=== PATIENT | male | born 1990 | race Caucasian/White ===

== ENCOUNTER 2019-07-15 13:27 | Emergency (ER) | payer OTHER, SELFPAY ==
[2019-07-15] MEDS ORDERED: NA CHLORIDE 0.9% 1,000 ML ONE ×2 (14:08→15:29)
--- NOTE | 2019-07-15 14:19 | EKG ---
Test Date: 2019-07-15 Test Time: 13:44:12 Pensionholder Information Clerk: CAROLIN MEASUREMENT RESULTS: Intervals: Rate: 124 WY: 152 QRSD: 86 QT: 280 QTc: 402 [place]: P: 47 WY: 152 QRS: 64 T: 46 INTERPRETIVE STATEMENTS: Sinus tachycardia Nonspecific T wave abnormality Abnormal ECG Compared to ECG 07/25/2012 17:40:27 T-wave abnormality now present Sinus rhythm no longer present Electronically Signed On 07-15-19 14:19:09 [employer] by Sujit Wright
[2019-07-15 14:43] LABS: Absolute Lymphocytes (CBC) 1.8 K/uL (0.7-4.9); Basophils % 0.2 % (0-1.3); Hematocrit 32.3 % (39.6-49.0); Lymphocytes % 32.4 % (15.3-44.8); MPV 8.4 fL (7.6-11.3); RBC Red Blood Cell Count 3.96 M/uL (4.33-5.43)
[2019-07-15 14:57] LABS: Protime INR 1.14
[2019-07-15 15:23] LABS: ALT/SGPT 107 U/L (12-78); AST/SGOT 74 U/L (15-37); Albumin 3.5 g/dL (3.4-5.0); Alkaline Phosphatase 153 U/L (45-117); BUN Blood Urea Nitrogen 13 mg/dL (7-18); Bicarbonate 30 mmol/L (21-32); Bilirubin Direct 0.2 mg/dL (0-0.2); Bilirubin Total 0.5 mg/dL (0.2-1.0); Glucose Level 101 mg/dL (74-106); Potassium 3.8 mmol/L (3.5-5.1); Protein, Total 7.2 g/dL (6.4-8.2); Sodium Level 141 mmol/L (136-145); Troponin (Emerg Dept Use Only) < 0.02 ng/mL (0.0-0.045)
[2019-07-15 15:27] LABS: Thyroid Stimulating Hormone < 0.005 uIU/mL (0.360-3.740)
[2019-07-15 16:09] LABS: Barbiturates NEGATIVE (NEGATIVE); Benzodiazepines NEGATIVE (NEGATIVE); Cocaine NEGATIVE (NEGATIVE); METHAMPHETAM NEGATIVE (NEGATIVE); Methadone NEGATIVE (NEGATIVE); Opiates NEGATIVE (NEGATIVE); Phencyclidine NEGATIVE (NEGATIVE); THC Cannibis POSITIVE (NEGATIVE)
--- NOTE | 2019-07-15 16:24 | ER ---
Nurse's Notes [facility] Name: Johnny Sales Age: 28 yrs Sex: Male : 1990 Arrival Date: 07/15/2019 Time: 13:29 Bed 13 Private MD: Diagnosis: Hyperthyroidism;Palpitations Presentation: 07/15 13:42 Presenting complaint: Patient states: has been weak, shaky, lost 60 pounds in last 3 iw months, the consistency of BM has been "off" , doesn't feel like he's getting enough nutrients, was seen at [facility] clinic yesterday was told his heart rate was elevated and they scheduled a colonoscopy and needs labs, was told to come to ER for labs. Transition of care: patient was not received from another setting of care. Onset of symptoms was March 2019. Risk Assessment: Do you want to hurt yourself or someone else? Patient reports no desire to harm self or others. Initial Sepsis Screen: Does the patient meet any 2 criteria? No. Patient's initial sepsis screen is negative. Does the patient have a suspected source of infection? No. Patient's initial sepsis screen is negative. Care prior to arrival: None. 13:42 Method Of Arrival: Ambulatory iw 13:42 Acuity: LIDYA 3 iw Triage Assessment: 13:45 General: Appears in no apparent distress. comfortable, Behavior is cooperative, bp appropriate for age, anxious. Pain: Denies pain. EENT: No deficits noted. Neuro: No deficits noted. Cardiovascular: Rhythm is sinus tachycardia. Respiratory: No deficits noted. GI: No deficits noted. : No signs and/or symptoms were reported regarding the genitourinary system. Derm: No deficits noted. Musculoskeletal: No deficits noted. Historical: - Allergies: 13:45 Sulfa (Sulfonamide Antibiotics); iw - Home Meds: 13:45 None [Active]; iw - PMHx: 13:45 Hypertension; iw - PSHx: 13:45 Hernia repair; iw - Immunization history:: Adult Immunizations not up to date. - Social history:: Smoking status: Patient/guardian denies using tobacco. - Ebola Screening: : Patient negative for fever greater than or equal to 101.5 degrees Fahrenheit, and additional compatible Ebola Virus Disease symptoms Patient denies exposure to infectious person Patient denies travel to an Ebola-affected area in the 21 days before illness onset No symptoms or risks identified at this time. Screenin:46 Abuse screen: Denies threats or abuse. Denies injuries from another. Nutritional bp screening: No deficits noted. Tuberculosis screening: No symptoms or risk factors identified. Fall Risk None identified. Assessment: 13:46 General: SEE TRIAGE NOTE. bp 15:00 Reassessment: ST ON MONITOR, IVF INFUSING. bp 16:30 Reassessment: D/C ON HOLD FOR LAB RESULTS. bp 16:44 Reassessment: PT D/C HOME AMBULATORY, DX WITH HYPERTHYROIDISM. bp Vital Signs: 13:45 BP 158 / 106; Pulse 127; Resp 16 S; Temp 99.7; Pulse Ox 97% on R/A; Weight 90.26 kg; iw Height 6 ft. 4 in. (193.04 cm); Pain 0/10; 14:52 BP 143 / 84; Pulse 109; Resp 27; Pulse Ox 99% ; bp 15:37 BP 150 / 77; Pulse 104; Resp 28; Pulse Ox 100% ; bp 16:30 BP 150 / 77; Pulse 104; Resp 26; Pulse Ox 100% ; bp 13:45 Body Mass Index 24.22 (90.26 kg, 193.04 cm) iw ED Course: 13:29 Patient arrived in ED. rg4 13:37 Ramez Cook, RN is Primary Nurse. bp 13:44 Triage completed. iw 13:44 EKG done, by ED staff, reviewed by Ross Zamora MD. dh3 13:46 Arm band placed on. iw 13:46 Patient has correct armband on for positive identification. Bed in low position. Call bp light in reach. Side rails up X2. 13:49 Karl Lin, DARIAN is PHCP. pm1 13:49 Ross Zamora MD is Attending Physician. pm1 14:02 Radiology exam delayed due to lab results not completed at this time. (BUN/Creatinine). bq 14:12 Missed attempt(s): 20 gauge in right forearm. Bleeding controlled, band aid applied, lt1 catheter tip intact. 14:15 Missed attempt(s): 20 gauge in left forearm. Bleeding controlled, band aid applied, lt1 catheter tip intact. 14:19 Initial lab(s) drawn, by ne, sent to lab. Inserted saline lock: 20 gauge in left lt1 antecubital area, using aseptic technique. Blood collected. 16:44 No provider procedures requiring assistance completed. IV discontinued, intact, bp bleeding controlled, No redness/swelling at site. Pressure dressing applied. Administered Medications: 14:05 Drug: NS 0.9% 1000 ml Route: IV; Rate: 1000 ml; Site: left antecubital; bp 16:46 Follow up: IV Status: Completed infusion; IV Intake: 1000ml bp 15:20 Drug: NS 0.9% 1000 ml Route: IV; Rate: 1000 ml; Site: left antecubital; bp 16:46 Follow up: IV Status: Completed infusion; IV Intake: 1000ml bp 16:25 Drug: Metoprolol 25 mg Route: PO; bp 16:29 Follow up: Response: No adverse reaction bp Intake: 16:46 IV: 1000ml; Total: 1000ml. bp 16:46 IV: 1000ml; Total: 2000ml. bp Outcome: 16:24 Discharge ordered by MD. pm1 16:44 Discharged to home ambulatory. bp 16:44 Condition: stable 16:44 Discharge instructions given to patient, Instructed on discharge instructions, follow up and referral plans. medication usage, Demonstrated understanding of instructions, follow-up care, medications, Prescriptions given X 1. 16:46 Patient left the ED. bp Signatures: Carly Eid Irene, RN Karl Boyle NP BOOKY pm1 Justine Arambula 4 Elizabeth Serrato 3 Ramez Cook RN RN bp Arlen, Jessica lt1
--- NOTE | 2019-07-15 16:25 | EDPHYS ---
Physician Documentation [facility] Name: Johnny Sales Age: 28 yrs Sex: Male : 1990 Arrival Date: 07/15/2019 Time: 13:29 Bed 13 Private MD: ED Physician Ross Zamora HPI: 07/15 14:00 This 28 yrs old Male presents to ER via Ambulatory with complaints of pm1 Dizziness, Palpitations. 14:00 The patient presents with a history of heart racing. Context: The symptoms occur at pm1 rest. Onset: The symptoms/episode began/occurred 3 month(s) ago. Modifying factors: The symptoms are aggravated by nothing. The symptoms are alleviated by nothing. Associated signs and symptoms: Pertinent positives: SOB, weight loss, 60 lbs over the past 3 months, Pertinent negatives: chest pain, cough, fever, nausea, vomiting. Severity of symptoms: in the emergency department the symptoms are unchanged. The patient has not experienced similar symptoms in the past. The patient has been recently seen by a physician: [facility] yesterday for the same complaints. Was instructed to get labs drawn in the ER yesterday due to elevated heart rate. Historical: - Allergies: 13:45 Sulfa (Sulfonamide Antibiotics); iw - Home Meds: 13:45 None [Active]; iw - PMHx: 13:45 Hypertension; iw - PSHx: 13:45 Hernia repair; iw - Immunization history:: Adult Immunizations not up to date. - Social history:: Smoking status: Patient/guardian denies using tobacco. - Ebola Screening: : Patient negative for fever greater than or equal to 101.5 degrees Fahrenheit, and additional compatible Ebola Virus Disease symptoms Patient denies exposure to infectious person Patient denies travel to an Ebola-affected area in the 21 days before illness onset No symptoms or risks identified at this time. ROS: 14:00 Eyes: Negative for injury, pain, redness, and discharge, ENT: Negative for injury, pm1 pain, and discharge, Neck: Negative for injury, pain, and swelling. 14:00 Abdomen/GI: Negative for abdominal pain, nausea, vomiting, diarrhea, and constipation, Back: Negative for injury and pain. 14:00 : Negative for injury, bleeding, discharge, and swelling, MS/Extremity: Negative for injury and deformity, Skin: Negative for injury, rash, and discoloration, Neuro: Negative for headache, weakness, numbness, tingling, and seizure. 14:00 Constitutional: Positive for weight loss, Negative for fever, poor PO intake. 14:00 Cardiovascular: Positive for palpitations, Negative for chest pain, edema. 14:00 Respiratory: Positive for shortness of breath, on exertion. Negative for cough, dyspnea on exertion. Exam: 14:00 Constitutional: This is a well developed, well nourished patient who is awake, alert, pm1 and in no acute distress. Head/Face: Normocephalic, atraumatic. ENT: Nares patent. No nasal discharge, no septal abnormalities noted. Tympanic membranes are normal and external auditory canals are clear. Oropharynx with no redness, swelling, or masses, exudates, or evidence of obstruction, uvula midline. Mucous membranes moist. Chest/axilla: Normal chest wall appearance and motion. Nontender with no deformity. No lesions are appreciated. 14:00 Respiratory: Lungs have equal breath sounds bilaterally, clear to auscultation and percussion. No rales, rhonchi or wheezes noted. No increased work of breathing, no retractions or nasal flaring. Abdomen/GI: Soft, non-tender, with normal bowel sounds. No distension or tympany. No guarding or rebound. No evidence of tenderness throughout. Back: No spinal tenderness. No costovertebral tenderness. Full range of motion. Skin: Warm, dry with normal turgor. Normal color with no rashes, no lesions, and no evidence of cellulitis. MS/ Extremity: Pulses equal, no cyanosis. Neurovascular intact. Full, normal range of motion. 14:00 Eyes: Periorbital structures: appear normal, Pupils: no acute changes, normal size, Extraocular movements: intact throughout, Conjunctiva: normal, Corneas: are normal, Sclera: no appreciated abnormality, Lids and lashes: appear normal, Exophthalmos bilaterally. 14:00 Neck: External neck: is normal, no mass, no tenderness, C-spine: appears grossly normal, no vertebral tenderness, no crepitus, Thyroid: no acute changes, Trachea: no acute changes. 14:00 Cardiovascular: Rate: tachycardic, Rhythm: regular, Pulses: no pulse deficits are appreciated, Heart sounds: normal, Edema: is not appreciated. 14:00 Neuro: Orientation: is normal, Motor: is normal, moves all fours. Vital Signs: 13:45 BP 158 / 106; Pulse 127; Resp 16 S; Temp 99.7; Pulse Ox 97% on R/A; Weight 90.26 kg; iw Height 6 ft. 4 in. (193.04 cm); Pain 0/10; 14:52 BP 143 / 84; Pulse 109; Resp 27; Pulse Ox 99% ; bp 15:37 BP 150 / 77; Pulse 104; Resp 28; Pulse Ox 100% ; bp 16:30 BP 150 / 77; Pulse 104; Resp 26; Pulse Ox 100% ; bp 13:45 Body Mass Index 24.22 (90.26 kg, 193.04 cm) iw MDM: 13:52 Patient medically screened. pm1 16:01 Data reviewed: vital signs. Data interpreted: Pulse oximetry: on room air is 100 %. pm1 Interpretation: normal. 16:10 Physician consultation: Jason Mallory DO was called at 16:10, was contacted at 16:10, pm1 regarding consult, patient's condition, Recommends the patient to follow up with PCP/Clinic to get thyroid scan, then to see endocrinology to ablate the thyroid. Discharge the patient home with metoprolol 25 mg PO BID and order Free T4. 16:23 Counseling: I had a detailed discussion with the patient and/or guardian regarding: the pm1 historical points, exam findings, and any diagnostic results supporting the discharge/admit diagnosis, lab results, radiology results, the need for outpatient follow up, to return to the emergency department if symptoms worsen or persist or if there are any questions or concerns that arise at home. 07/15 13:54 Order name: Acetaminophen pm1 07/15 13:54 Order name: Basic Metabolic Panel pm1 07/15 13:54 Order name: CBC with Diff; Complete Time: 15:03 pm1 07/15 13:54 Order name: ETOH Level; Complete Time: 15:03 pm1 07/15 13:54 Order name: Hepatic Function pm1 07/15 13:54 Order name: PT-INR; Complete Time: 15:28 pm1 07/15 13:54 Order name: Ptt, Activated; Complete Time: 15:28 pm1 07/15 13:54 Order name: Salicylate; Complete Time: 15:03 pm1 07/15 13:54 Order name: Urine Drug Screen pm1 07/15 13:54 Order name: TSH pm1 07/15 13:54 Order name: Troponin (emerg Dept Use Only) pm1 07/15 13:55 Order name: Acetaminophen Level [facility] 07/15 16:30 Order name: T4 Free [facility] 07/15 13:54 Order name: EKG; Complete Time: 13:56 pm1 07/15 13:54 Order name: EKG - Nurse/Tech; Complete Time: 14:03 pm1 07/15 13:54 Order name: IV Saline Lock; Complete Time: 14:23 pm1 07/15 13:54 Order name: Labs collected and sent; Complete Time: 14:23 pm1 07/15 13:54 Order name: Urine Dipstick-Ancillary (obtain specimen); Complete Time: 15:37 pm1 Administered Medications: 14:05 Drug: NS 0.9% 1000 ml Route: IV; Rate: 1000 ml; Site: left antecubital; bp 16:46 Follow up: IV Status: Completed infusion; IV Intake: 1000ml bp 15:20 Drug: NS 0.9% 1000 ml Route: IV; Rate: 1000 ml; Site: left antecubital; bp 16:46 Follow up: IV Status: Completed infusion; IV Intake: 1000ml bp 16:25 Drug: Metoprolol 25 mg Route: PO; bp 16:29 Follow up: Response: No adverse reaction bp Disposition: 07/16 07:08 Co-signature as Attending Physician, Ross Zamora MD I agree with the assessment and kdr plan of care. Disposition: 07/15/19 16:24 Discharged to Home. Impression: Hyperthyroidism, Palpitations. - Condition is Stable. - Discharge Instructions: Hyperthyroidism, Palpitations. - Prescriptions for Metoprolol Tartrate 25 mg Oral Tablet - take 1 tablet by ORAL route every 12 hours with a meal; 20 tablet. - Medication Reconciliation Form, Thank You Letter, Antibiotic Education, Prescription Opioid Use form. - Follow up: Emergency Department; When: As needed; Reason: Worsening of condition. Follow up: Private Physician; When: 2 - 3 days; Reason: Recheck today's complaints, Continuance of care, Re-evaluation by your physician. - Problem is new. - Symptoms have improved. Signatures: Dispatcher [employer] [facility] Ross Zamora MD MD kdr Roshni Frausto, RN RN iw Karl Lin, DARIAN NEW MEDIA STRATEGIST pm1 Ramez Cook, RN RN bp Corrections: (The following items were deleted from the chart) 07/15 14:35 13:56 Chest For PE Angio+CT.RAD.BRZ ordered. [facility] EDVT 16:26 16:24 07/15/2019 16:24 Discharged to Home. Impression: Thyrotoxicosis pm1 [hyperthyroidism]. Condition is Stable. Forms are Medication Reconciliation Form, Thank You Letter, Antibiotic Education, Prescription Opioid Use. Follow up: Emergency Department; When: As needed; Reason: Worsening of condition. Follow up: Private Physician; When: 2 - 3 days; Reason: Recheck today's complaints, Continuance of care, Re-evaluation by your physician. Problem is new. Symptoms have improved. pm1 16:31 16:14 T4 FREE+C.LAB.BRZ ordered. [facility] 16:46 16:26 07/15/2019 16:24 Discharged to Home. Impression: Hyperthyroidism; Palpitations. bp Condition is Stable. Forms are Medication Reconciliation Form, Thank You Letter, Antibiotic Education, Prescription Opioid Use. Follow up: Emergency Department; When: As needed; Reason: Worsening of condition. Follow up: Private Physician; When: 2 - 3 days; Reason: Recheck today's complaints, Continuance of care, Re-evaluation by your physician. Problem is new. Symptoms have improved. pm1
[2019-07-15] MEDS ORDERED: METOPROLOL TAR 25 MG TAB ONE (16:27)
[2019-07-15 16:56] VITALS: TEMP 99.7
[2019-07-15 16:57] VITALS: BP 150/77; O2SAT 100
== END 2019-07-15 16:46 | disposition home or self-care (01) ==
LOC: ER 13:27
DX: E05.90 Thyrotoxicosis, unspecified without thyrotoxic crisis or storm (principal); I10 Essential (primary) hypertension; Z88.2 Allergy status to sulfonamides
CPT/HCPCS: 36415; 80048; 80076; 80307; 80320; 80329; 84439; 84443; 84484; 85025; 85610; 85730; 93005; 96360; 96361; 99284; J7030